=== PATIENT | female | born 1940 | race Caucasian/White ===

== ENCOUNTER → 2016-09-20 | Day surgery (SDC) | payer MEDICARE ==
[~2016-09-20] MED LIST: AMLO5TAB2 PO; B-COTAB41 PO; BUPIVACAINE HCL PF 0.75% 30 ML VIAL ONE; CALC1TAB69 PO; CALC500C6 CHEW; CHOL1TAB42 PO; COLA100C3 PO; HYOS0.127 PO; PROPOFOL 200 MG/20 ML AMP IV ONE; PROT40TA PO; ROBA500T PO; TRIAMCINOLONE ACETONIDE 40 MG/ML VIAL I-ARTICULR ONE; VYTO10TA8 PO
--- NOTE | 2016-09-28 12:53 | M6 ---
cc: VENKATESH CARPENTER M.D. DATE: 09/20/2016 DATE OF : 1940 PROCEDURE Fluoroscopically guided injection bilateral lumbar facet joints (bilateral L3-4, L4-5 and L5-S1 facet joints.) History and physical was completed and signed. Consent was signed. Procedure site was marked. Medications were listed and reconciled. Pain score was recorded. Allergies were noted. Time out was taken. Fluoroscopy time was recorded where applicable. Sedation was administered or directed by Dr. Carpenter. The patient was given oxygen. The patient was monitored by a registered nurse. Total procedure time was greater than 15 minutes. IV was started, blood pressure cuff, pulse oximeter and EKG were applied. The patient was placed in the prone position on a Alessio table sedated with small amounts of propofol titrated to effect. Vital signs were monitored and remained stable throughout the procedure. The lumbar area was prepped with alcohol and 10% Betadine solution and draped with sterile drapes. Fluoroscopy was used in a Rc dog view to visualize the bilateral lumbar facet joints at L3-4, L4-5 and L5-S1. Separate sterile 3-1/2-inch 25-gauge spinal needles were advanced into these joints under fluoroscopic guidance. There was negative aspiration for blood or any other type of fluid and the patient was given 1 mL of Marcaine 0.75% which contained 10 mg of Kenalog at each location. Following this the patient was taken to the recovery room with stable vital signs neurologically intact. She will be evaluated immediately and with followup to determine if she has a subjective decrease her usual pain and a corresponding objective increase her functional capabilities. W. MD RAND Walton/rick /10:45 AM /12:49 PM
== END | disposition home or self-care (01) ==
LOC: PHSDC 08:57
PROVIDERS: ATTEND Pain Medicine Interventional Pain Medicine
DX: M54.5 Low back pain (principal)
CPT/HCPCS: 64493; 64494; 64495; 99152; J3301